=== PATIENT | female | born 1970 | race Caucasian/White ===

== ENCOUNTER 2019-05-17 03:34 | Emergency (ER) | payer SELFPAY ==
[2019-05-17] MEDS ORDERED: ASPIR 8181 MG PO (19:47)
[2019-05-17] MEDS ORDERED: GABA300 PO (19:47)
[2019-05-17] MEDS ORDERED: FLUC150A PO (19:48)
[2019-05-17] MEDS ORDERED: Prozac20 MG PO (19:48)
[2019-05-17] MEDS ORDERED: Bactrim Ds Tab1 EACH PO (19:48)
[2019-05-17] MEDS ORDERED: Glucophage1000 MG PO (19:48)
[2019-05-17] MEDS ORDERED: Lipitor20 MG PO (19:49)
[2019-05-17] MEDS ORDERED: OMEPRAZOLE20 MG PO (19:49)
[2019-05-17] MEDS ORDERED: Coreg12.5 MG PO (19:49)
[2019-05-17] MEDS ORDERED: BUPR150ER PO (19:50)
[2019-05-17] MEDS ORDERED: THERA1 EACH PO ×2 (19:50→21:41)
[2019-05-17] MEDS ORDERED: TRAZ50 PO (19:50)
[2019-05-17] MEDS ORDERED: INSDET100 SC (21:38)
[2019-05-17] MEDS ORDERED: NOVOLOG FL100 UNIT/1 SC (21:39)
[2019-05-17] MEDS ORDERED: Vitamin D2000 UNIT PO (21:41)
[2019-05-17] MEDS ORDERED: B-121000 MC3 PO (21:41)
[2019-05-17] MEDS ORDERED: FERSU300 PO (21:41)
== END 2019-05-17 03:52 | disposition left against medical advice (07) ==
LOC: ER 03:34
DX: Z53.21 Procedure and treatment not carried out due to patient leaving prior to being seen by health care provider (principal)

== ENCOUNTER 2019-05-17 17:32 | Inpatient (IN) | payer MEDICARE, OTHER ==
[~2019-05-17] VITALS: Ht 182.9 cm; Wt 113.0 kg
[2019-05-17 18:24] LABS: BASOPHILS ABSOLUTE AUTO 0.05 K/mm3 (0.00-0.23); BASOPHILS PERCENT AUTO 1 % (0-2); EOSINOPHILS ABSOLUTE AUTO 0.19 K/mm3 (0.00-0.68); EOSINOPHILS PERCENT AUTO 3 % (0-6); Hematocrit 37.6 % (33.0-51.0); Hemoglobin 11.4 g/dL (11.5-16.0); IMMATURE GRAN ABSOLUTE AUTO 0.02 K/mm3 (0.00-0.10); IMMATURE GRAN PERCENT AUTO 0 % (0-1); LYMPHOCYTES ABSOLUTE AUTO 1.76 K/mm3 (0.84-5.20); LYMPHOCYTES PERCENT AUTO 31 % (21-46); MONOCYTES PERCENT AUTO 9 % (4-13); Mean Corpuscular HGB 25.7 pg (26.0-34.0); Mean Corpuscular HGB Conc 30.3 g/dL (31.5-36.5); Mean Corpuscular Volume 85 fL (80-100); Mean Platelet Volume 10.5 fL (9.1-12.4); NEUTROPHILS ABSOLUTE AUTO 3.11 K/mm3 (1.96-9.15); NEUTROPHILS PERCENT AUTO 55 % (41-73); Platelet Count 276 K/mm3 (150-400); RDW Coefficient Variation 14.5 % (11.7-14.2); Red Blood Cell Count 4.43 M/mm3 (3.80-5.20); White Blood Cell Count 5.63 K/mm3 (4.00-11.30)
[2019-05-17 18:40] LABS: Bun/Creatinine Ratio 22.6 (12.0-20.0); Creatinine, Blood 1.46 mg/dL (0.40-1.00); Potassium, Blood 5.2 mmol/L (3.5-5.5); Troponin I 0.166 ng/mL (0.000-0.040)
[2019-05-17] MEDS ORDERED: ASPIR 8181 MG PO (19:47)
[2019-05-17] MEDS ORDERED: GABA300 PO (19:47)
[2019-05-17] MEDS ORDERED: Glucophage1000 MG PO (19:48)
[2019-05-17] MEDS ORDERED: FLUC150A PO (19:48)
[2019-05-17] MEDS ORDERED: Prozac20 MG PO (19:48)
[2019-05-17] MEDS ORDERED: Bactrim Ds Tab1 EACH PO (19:48)
[2019-05-17] MEDS ORDERED: Coreg12.5 MG PO (19:49)
[2019-05-17] MEDS ORDERED: Lipitor20 MG PO (19:49)
[2019-05-17] MEDS ORDERED: OMEPRAZOLE20 MG PO (19:49)
[2019-05-17] MEDS ORDERED: BUPR150ER PO (19:50)
[2019-05-17] MEDS ORDERED: THERA1 EACH PO ×2 (19:50→21:41)
[2019-05-17] MEDS ORDERED: TRAZ50 PO (19:50)
[2019-05-17] MEDS ORDERED: INSDET100 SC (21:38)
[2019-05-17] MEDS ORDERED: NOVOLOG FL100 UNIT/1 SC (21:39)
[2019-05-17] MEDS ORDERED: FERSU300 PO (21:41)
[2019-05-17] MEDS ORDERED: B-121000 MC3 PO (21:41)
[2019-05-17] MEDS ORDERED: Vitamin D2000 UNIT PO (21:41)
[2019-05-18 02:39] LABS: Bun/Creatinine Ratio 26.9 (12.0-20.0); Calcium, Blood 8.5 mg/dL (8.5-10.1); Creatinine, Blood 1.19 mg/dL (0.40-1.00)
--- NOTE | 2019-05-18 02:40 | NUR ---
potassium 6.0. calling MD to notify
[2019-05-18 10:02] LABS: Bun/Creatinine Ratio 26.1 (12.0-20.0); Calcium, Blood 8.6 mg/dL (8.5-10.1); Creatinine, Blood 1.19 mg/dL (0.40-1.00)
[2019-05-18 10:04] LABS: Potassium, Blood 6.3 mmol/L (3.5-5.5)
[2019-05-18 15:33] LABS: Bun/Creatinine Ratio 26.3 (12.0-20.0); Calcium, Blood 9.3 mg/dL (8.5-10.1); Creatinine, Blood 1.18 mg/dL (0.40-1.00); Potassium, Blood 6.4 mmol/L (3.5-5.5)
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
[2019-05-18 23:16] LABS: Bun/Creatinine Ratio 23.5 (12.0-20.0); Calcium, Blood 9.3 mg/dL (8.5-10.1); Creatinine, Blood 1.36 mg/dL (0.40-1.00); Potassium, Blood 6.2 mmol/L (3.5-5.5)
--- NOTE | 2019-05-19 00:16 | NUR ---
05/18/[address] Ward was notified of critical lab value of K+ 6.2. states he will check pts chart and write orders.
--- NOTE | 2019-05-19 01:35 | NUR ---
05/19/19 0121 IV INSULIN 10 UNITS GIVEN FOR HIGH POTASSIUM PER DR MORROW. DOSE CHECKED WITH NINOSKA CAMPOS. PT SLEEPING AND AWAKENED AND INFORMED OF MEDS GIVEN.
--- NOTE | 2019-05-19 03:52 | NUR ---
05/19/19 0345 PULSE OXIMETER SOUNDING O2 SAT AT 85%. PT TOOK OFF CPAP. STATES SHE DOES NOT WANT IT ON IT IS UNCOMFORTABLE. ENCOURAGED AND INFORMED OF O2 SATS BEING DOWN TO 85% but still refuses it on.
[2019-05-19 06:33] LABS: Bun/Creatinine Ratio 25.8 (12.0-20.0); Calcium, Blood 9.4 mg/dL (8.5-10.1); Creatinine, Blood 1.28 mg/dL (0.40-1.00)
[2019-05-19 06:43] LABS: Potassium, Blood 6.4 mmol/L (3.5-5.5)
--- NOTE | 2019-05-19 07:29 | NUR ---
05/19/19 0650 PT AWAKENED FOR AM MED. REFUSED CPAP LAST NIGHT AFTER ABOUT 6 HOURS IT WAS "UNCOMFORTABLE". SEE PREVIOUS NOTE. CONTINUES TO HAVE HIGH POTASSIUM LEVELS. SEE CRITICAL VALUE DOCUMENTATIONS. PT APATHETIC ABOUT CARE/HEALTH. HEART MONITOR REMAINS SINUS TACHY. IN LOW 100"S WITH PVC'S.
--- NOTE | 2019-05-19 07:45 | NUR ---
PT. HAS AN IV IN HER RIGHT WRIST WHICH IS PATENT . NO DOCUMENTATIN TO WHEN OR WHO PLACED IT.
[2019-05-19 14:01] LABS: Bun/Creatinine Ratio 28.2 (12.0-20.0); Calcium, Blood 9.3 mg/dL (8.5-10.1); Creatinine, Blood 1.24 mg/dL (0.40-1.00); Potassium, Blood 5.7 mmol/L (3.5-5.5)
--- NOTE | 2019-05-19 18:30 | NUR ---
PT. IN SHOWER AT THIS TIME, EATING DINNER WELL, BUT THE S.O. CONTINUES TO BRING IN HIGH CARB FOODS. PT'S POTASSIUM LEVEL AT 5.7 AFTER THE MORNING MEDS, FLUIDS AND 50 OF SODIUM BICARB. WILL PROBABLY DISCHARGE PT. HOME TOMORROW. LOOKED AT WOUND ON HEEL AND IT HAS EXUDATE AND WHAT APPEARS TO BE A HOLE IN HER RIGHT HEEL. WILL DRESS IT ONCE SHES OUT OF THE SHOWER. SPOUSE DEMANDED TO TALK TO TODAY REGARDING THE WOUND ON HEEL. PT. ALSO HAD HOME MEDS POURED OUT ON BED AND WAS GIVING SOME TO HER S.O., THIS WAS WITNESSED BY THE QUALITY COMPLIANCE CONSULTANT, WHEN I ASKED PT. ABOUT IT SHE SAID SHE WAS GIVING HIM ZOFRAN BUT DENIED TAKING ANY PAIN PILLS.
--- NOTE | 2019-05-20 02:08 | NUR ---
05/20/19 0210 PT SLEEPING WITH SIGNIFICANT OTHER IN ROOM WITH HER. WOKE UP JUST NOW COUGHING. ICE CHIPS GIVEN PER REQUEST TO SOOTHE THROAT.
[2019-05-20 05:43] LABS: Bun/Creatinine Ratio 29.5 (12.0-20.0); Calcium, Blood 8.8 mg/dL (8.5-10.1); Creatinine, Blood 1.32 mg/dL (0.40-1.00); Potassium, Blood 4.8 mmol/L (3.5-5.5)
--- NOTE | 2019-05-20 05:50 | NUR ---
05/20/19 0550 K LEVEL AT 4.8 . VITALS STABLE EXCEPT PULSE REMAINS TACHY. SINCE ADMISSION. DECLINED CPAP USE LAST NIGHT. OCC COUGHING EPISODES. UNEVENTFUL NIGHT.
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
[2019-05-20] MEDS ORDERED: Prednisone10 MG PO (11:51)
[2019-05-20] MEDS ORDERED: ALBU4 INH (14:02)
[2019-05-20] MEDS ORDERED: BUDE10.22 INH (14:02)
--- NOTE | 2019-05-20 15:20 | NUR ---
SHE DISCHARGED TO HOME AT 1308 WITH BELONGINGS AND INSTRUCTIONS. SHE ALSO HAS THE [facility] NEW PATIENT PACKET AND HAS BEEN INSTRUCTED TO FILL THAT OUT AND GO TO URGENT CARE IF NEEDED FOR A NEW PCP. WOUND CLINIC ORDERED BY . TOOK OFF HER DRESSING AND LATER HER S.O. REPLACED THE DRESSING PRIOR TO DC. SHE SAYS THEY PLAN TO LOOK FOR A PLACE TO LIVE SOMEWHERE [place] AND GET A PCP AND WOUND CLINIC UP IN [place]. I HAVE SINCE CALLED HER AFTER SHE LEFT TO TELL HER ADDED 2 INHALERS TO HER DC PRESCRIPTIONS. SHE WAS GLAD. SHE KNOWS THEY WERE FAXED TO [facility].
== END 2019-05-20 13:05 | disposition home or self-care (01) | DRG 190 ==
LOC: ER 17:32 → MEDS 17:33 → ENPENDDIS 05-20 11:28 → MEDS 05-20 13:05
PROVIDERS: Hospitalist; Internal Medicine; Physician Assistant; ADMIT Internal Medicine
DX: J44.1 Chronic obstructive pulmonary disease with (acute) exacerbation (principal); I21.A1 Myocardial infarction type 2; I50.22 Chronic systolic (congestive) heart failure; I13.0 Hypertensive heart and chronic kidney disease with heart failure and stage 1 through stage 4 chronic kidney disease, or unspecified chronic kidney disease; F43.10 Post-traumatic stress disorder, unspecified; N18.3 Chronic kidney disease, stage 3 (moderate); E11.22 Type 2 diabetes mellitus with diabetic chronic kidney disease; Z89.519 Acquired absence of unspecified leg below knee; F17.210 Nicotine dependence, cigarettes, uncomplicated; Z79.4 Long term (current) use of insulin; E87.5 Hyperkalemia; T36.8X5A Adverse effect of other systemic antibiotics, initial encounter; Y92.9 Unspecified place or not applicable; F32.9 Major depressive disorder, single episode, unspecified; E11.42 Type 2 diabetes mellitus with diabetic polyneuropathy
CPT/HCPCS: 36415; 71046; 80048; 82947; 83036; 83880; 84145; 84484; 85025; 93005; 93010; 93306; 94640; 94660; 94762; 96372; 96374; 96376; 99285-25; A9270-GY; G0378; J0610; J1650; J1815; J1940; J2920; J7040; J7512